=== PATIENT | male | born 1990 | race Caucasian/White ===

== ENCOUNTER 2024-03-24 22:03 | Emergency (ER) | payer MEDICAID ==
[~2024-03-24] VITALS: Ht 160 cm; Wt 87.0 kg
[2024-03-24 22:18] VITALS: O2SAT 98
[2024-03-25] MEDS: TETANUS, DIPHTHERIA, PERTUSSIS VAC/PF 0.5ML (>10YR OLD) IM ONE (01:54)
[2024-03-25] MEDS: BACITRACIN ZINC OINT UDPKT TOP ONE (01:55)
[2024-03-25] MEDS: LIDOCAINE HCL/PF 1% 10 MG/ML 5ML VIAL INFIL ONE (01:55)
[2024-03-25] MEDS ORDERED: DOXY100C5 MT (02:30)
[2024-03-25] MEDS ORDERED: SULF1TAB48 MT (02:30)
[2024-03-25 03:39] VITALS: BP 126/76; PULSE 103; RESP 18; TEMP 37.28076; O2SAT 100
== END 2024-03-25 03:40 | disposition home or self-care (01) ==
LOC: ER 22:03
DX: K61.0 Anal abscess (principal); K64.9 Unspecified hemorrhoids
CPT/HCPCS: 46050; 99284; 90715; 90471; J3490; 99283